=== PATIENT | female | born 1955 | race Caucasian/White ===

== ENCOUNTER 2022-12-11 12:57 | Emergency (ER) | payer MEDICARE, SELFPAY ==
[2022-12-11 13:06] VITALS: BP 140/82; PULSE 108; RESP 24; TEMP 37.4; O2SAT 96; BMI 31.1
[2022-12-11 13:08] VITALS: O2SAT 95
--- NOTE | 2022-12-11 13:20 | ED.URI1 ---
HPI - URI/Sore Throat General Chief Complaint: Upper Respiratory Infection Stated Complaint: CONGESTION POSS UTI Time Seen by Provider: 12/11/22 13:11 Source: patient Limitations: no limitations History of Present Illness HPI Narrative: patient is a 67-year-old female who presents to the emergency department to be retested for Covid. Patient states she has had three days of fevers, cough, headache, congestion, fatigue. She took a home Covid test that was positive but she states she does not believe it so she came to the emergency department to be retested because she is concerned about her boyfriend who is also not feeling well. She is fully vaccinated for Covid. She denies chest pain, , vomiting. She is sitting comfortably at initial interview. She further complains of a possible urinary tract infection for the last several days with cloudy urine and burning with urination. She has no abdominal pain or flank pain. No medications taken prior to arrival. Related Data Home Medications Medication Instructions Recorded Confirmed allopurinol 100 mg tablet 100 mg PO DAILY 12/11/22 12/11/22 atorvastatin 10 mg tablet 10 mg PO DAILY 12/11/22 12/11/22 levothyroxine 75 mcg tablet 75 mcg PO DAILY 12/11/22 12/11/22 losartan 100 mg tablet 100 mg PO DAILY 12/11/22 12/11/22 metformin 500 mg tablet 500 mg PO BID 12/11/22 12/11/22 Previous Rx's Medication Instructions Recorded [id number]-[id number] 10 ml PO Q6H PRN cold symptoms 12/11/22 2 mg-30 mg-10 mg/5 mL oral syrup #118 mL (Bromfed DM) cephalexin 500 mg capsule 500 mg PO Q8H 5 days #15 caps 12/11/22 dexamethasone 4 mg tablet 4 mg PO BID 3 days #6 tabs 12/11/22 ondansetron 4 mg disintegrating 4 mg PO Q6H PRN nausea and 12/11/22 tablet vomiting #12 tabs Allergies Allergy/AdvReac Type Severity Reaction Status Date / Time morphine AdvReac Severe Verified 12/11/22 13:14 Review of Systems ROS Constitutional Reports: fever and chills Ears, nose, mouth, and throat Denies: throat pain Cardiovascular Denies: chest pain Respiratory Reports: cough; Denies: shortness of breath Gastrointestinal Denies: abdominal pain, nausea or vomiting Genitourinary Reports: painful urination Musculoskeletal Denies: back pain Integumentary/Breast Denies: rash Neurological Reports: headache PFSH PFSH Social History Smoking status: Former smoker Exam Narrative Exam Narrative: Gen.: Awake, alert, in no distress Head: Normocephalic, atraumatic ENT: Moist mucous membranes Respiratory: No respiratory distress, lungs clear bilaterally Cardio: Regular rate and rhythm Gastrointestinal: Abdomen is soft, nondistended and nontender to palpation Extremities: Moves extremities equally, no injuries noted Psych: Normal mood and affect Neuro: No focal neuro deficit Skin: Warm, dry, intact Constitutional Vital Signs, click to edit/add: Last Vital Signs Temp 99.3 F 12/11/22 13:06 Pulse 108 H 12/11/22 13:06 Resp 24 12/11/22 13:06 BP 140/82 H 12/11/22 13:06 Pulse Ox 96 12/11/22 13:06 Course Vital Signs Vital signs: Vital Signs Temperature 99.3 F 12/11/22 13:06 Pulse Rate 108 H 12/11/22 13:06 Respiratory Rate 24 12/11/22 13:06 Blood Pressure 140/82 H 12/11/22 13:06 Pulse Oximetry 96 12/11/22 13:06 Temperature 99.3 F 12/11/22 13:06 Pulse Rate 108 H 12/11/22 13:06 Respiratory Rate 24 12/11/22 13:06 Blood Pressure 140/82 H 12/11/22 13:06 Pulse Oximetry 96 12/11/22 13:06 MDM - URI/Sore Throat MDM Narrative Medical decision making narrative: patient found to have a minimal urinary tract infection, her vital signs are stable with no hypoxia or hypotension. Covid test was obtained but before the results came back, the patient stated that she wanted to go home. We will place her on an antibiotic for urinary tract infection, cough medication. She requests Paxlovid. she was instructed not to take her atorvastatin while on the PaxLOVID. Follow-up with PCP. Keflex, Bromfed-DM, Zofran, Decadron given for home for Covid and urinary tract infection symptoms. Return to the Emergency Room if symptoms change or worsen. Medical Records Attestation: I reviewed the patient's medical records. Lab Data Attestation: I reviewed the patient's lab results. Labs: Lab Results 12/11/22 Range/Units 13:22 Urine Color Yellow (YELLOW) Urine Clarity Clear (CLEAR) Urine pH 6.0 (5.0-9.0) Ur Specific [place] 1.025 (1.005-1.025) Urine Protein 30 A (NEG/TRACE) mg/dL Urine Glucose (UA) Negative (NEGATIVE) mg/dL Urine Ketones Negative (NEGATIVE) mg/dL Urine Occult Blood Negative (NEGATIVE) Urine Nitrite Negative (NEGATIVE) Urine Bilirubin Negative (NEGATIVE) Urine Urobilinogen 0.2 (0.2-1.0) EU/dL Ur Leukocyte Esterase Trace A (NEGATIVE) Urine RBC 0-2 (0-2) #/HPF Urine WBC 2-5 A (NONE SEEN) #/HPF Ur Squamous Epith Cells Few A (NONE/RARE) #/LPF Urine Crystals None seen (None Seen) #/HPF Urine Bacteria None seen (NONE SEEN) #/HPF Urine Casts None seen (NONE SEEN) #/LPF Urine Mucus None seen (NONE SEEN) Ur Culture Indicated? No Discharge Plan Discharge Chief Complaint: Upper Respiratory Infection Clinical Impression: COVID-19, Acute UTI Time of Disposition Decision: 14:00 Condition: Good Prescriptions / Home Meds: New vrqifnvbbdmugen-fmvnuxqrs-VP [Bromfed DM] 2-30-10 mg/5 mL syrup 10 ml PO Q6H PRN (Reason: cold symptoms) Qty: 118 0RF dexamethasone 4 mg tablet 4 mg PO BID 3 Days Qty: 6 0RF cephalexin 500 mg capsule 500 mg PO Q8H 5 Days Qty: 15 0RF ondansetron 4 mg tablet,disintegrating 4 mg PO Q6H PRN (Reason: nausea and vomiting) Qty: 12 0RF No Action allopurinol 100 mg tablet 100 mg PO DAILY atorvastatin 10 mg tablet 10 mg PO DAILY levothyroxine 75 mcg tablet 75 mcg PO DAILY losartan 100 mg tablet 100 mg PO DAILY metformin 500 mg tablet 500 mg PO BID Instructions: Urinary Tract Infection in Women (ED), COVID-19 (Coronavirus Disease 2019) (ED) Additional Instructions: DO NOT TAKE YOUR ATORVASTATIN WHILE ON PAXLOVID Stand Alone Forms: Portal Instructions Referrals: TIFFANY OROSCO [Primary Care Provider] - 1 week
[2022-12-11 13:38] LABS: Bilirubin Urine NEGATIVE (NEGATIVE); Blood Urine NEGATIVE (NEGATIVE); Clarity Urine CLEAR (CLEAR); Color Urine YELLOW (YELLOW); Glucose Urine UA NEGATIVE (NEGATIVE); Ketones Urine NEGATIVE (NEGATIVE); Leukocyte Esterase Urine TRACE (NEGATIVE); Nitrite Urine NEGATIVE (NEGATIVE); Protein Urine 30 mg/dL (NEG/TRACE); Specific Gravity Urine 1.025 (1.005-1.025); Urine Microscopic Indicated YES; Urobilinogen Urine 0.2 EU/dL (0.2-1.0)
[2022-12-11 13:48] LABS: Bacteria Urine NONE SEEN #/HPF (NONE SEEN); Cast Seen? NONE SEEN #/LPF (NONE SEEN); Crystals Seen? None Seen #/HPF (None Seen); Mucus Urine NONE SEEN (NONE SEEN); RBC Urine 0-2 #/HPF (0-2); Squamous Epithelial Cell Urine FEW #/LPF (NONE/RARE); Urine Culture Indicated NO
[2022-12-11 14:32] VITALS: PULSE 104; RESP 20; O2SAT 95
[2022-12-11 14:53] LABS: SARS-CoV-2 Ag POSITIVE (NEGATIVE)
== END 2022-12-11 14:37 | disposition home or self-care (01) ==
PROVIDERS: Physician Assistant; Emergency Provider Emergency Medicine; PCP Internal Medicine
DX: U07.1 COVID-19 (principal); N39.0 Urinary tract infection, site not specified; Z87.891 Personal history of nicotine dependence; Z79.890 Hormone replacement therapy; Z79.899 Other long term (current) drug therapy; Z79.84 Long term (current) use of oral hypoglycemic drugs
CPT/HCPCS: 81001; 87635; 87811; 99284